=== PATIENT | female | born 1975 | race Two or more races ===

== ENCOUNTER 2023-03-18 14:16 | Emergency (ER) | payer OTHER ==
[~2023-03-18] VITALS: Ht 160 cm; Wt 49.9 kg
[2023-03-18] MEDS ORDERED: TUSNEL LIQUID178 ML PO (15:59)
[2023-03-18] MEDS ORDERED: ZITHROMAX500 MG PO (15:59)
[2023-03-18] MEDS ORDERED: ZYRTEC10 M3 PO (15:59)
== END 2023-03-18 17:08 | disposition home or self-care (01) ==
LOC: ER 14:16
PROVIDERS: General Practice
DX: B34.9 Viral infection, unspecified (principal); Z20.822 Contact with and (suspected) exposure to COVID-19

== ENCOUNTER 2024-12-06 05:57 | Day surgery (SDC) | payer OTHER ==
[2024-11-30 08:25] LABS: BASO % 0.5 % (0.1-1.2); EOS # 0.08 (0.04-0.54); EOS % 0.7 % (0.7-7.0); HEMATOCRIT 40.9 % (34.1-44.9); HEMOGLOBIN 13.9 g/dL (11.2-15.7); LYMPH # 3.09 (1.18-3.74); LYMPH % 25.1 % (19.3-53.1); MEAN CORPUSCULAR HEMOGLOBIN 31.3 pg (25.6-32.2); MONO # 0.81 (0.24-0.82); MONO % 6.6 % (4.7-12.5); NEUT # 8.12 (1.56-6.13); PLATELET COUNT 321 K/uL (163-369); RED BLOOD COUNT 4.44 M/uL (3.93-5.22); RED CELL DISTRIBUTION WIDTH 13.2 % (11.6-14.4)
[2024-11-30 08:28] VITALS: BP 128/76
[2024-11-30 08:49] LABS: PH,URINE 7.5 (5.0-8.0); URINE APPEARANCE Turbid; URINE BILIRRUBIN Negative (NEGATIVE); URINE BLOOD Trace; URINE COLOR Yellow; URINE GLUCOSE Negative (NEGATIVE); URINE KETONE Negative (NEGATIVE); URINE LEUKOCYTE Trace; URINE NITRATE Negative; URINE PROTEIN Negative (NEGATIVE); URINE UROBILINOGEN 0.2 E.U./dl
[2024-11-30 08:53] LABS: URINE BACTERIA 713.5 uL (0.0-1933); URINE EPITHELIAL CELLS 30.8 uL (0.0-38.8); URINE WBC 13.7 uL (0.0-23.2)
[2024-11-30 09:09] LABS: INR 0.97; PROTHROMBIN TIME 10.6 SECONDS (9.0-11.5)
[2024-11-30 09:38] LABS: ALBUMIN 3.8 gm/dL (3.4-5.0); BILIRUBIN TOTAL 0.59 mg/dL (0.3-1.2); CALCIUM 9.2 mg/dL (8.5-10.1); CREATININE SERUM 0.6 mg/dL (0.55-1.02); GFR 106.7; GLOBULINA 3.2 G/DL (2.4-3.5); POTASSIUM 4.35 mEq/L (3.5-5.1)
[~2024-12-06] VITALS: Ht 160 cm; Wt 49.9 kg
[~2024-12-06 05:57] MED LIST: BREO ELLIPTA 21 EACH; SINGULAIR10 MG PO; TUSNEL LIQUID178 ML PO; ZITHROMAX500 MG PO; ZYRTEC10 M3 PO
[2024-12-06] MEDS ORDERED: CEFAZOLIN SODIUM 1,000 MG VIAL ONE (11:00)
[2024-12-06] MEDS ORDERED: MORPHINE SULFATE 4 MG/ML VIAL IV ONE (14:10)
== END 2024-12-06 16:50 | disposition home or self-care (01) ==
LOC: CIR.AMB 05:57
PROVIDERS: ATTEND Surgery
DX: K43.6 Other and unspecified ventral hernia with obstruction, without gangrene (principal)
CPT/HCPCS: 49594; C1781